=== PATIENT | male | born 1980 | race Caucasian/White ===

== ENCOUNTER 2018-11-11 20:34 | Emergency (ER) | payer OTHER ==
[~2018-11-11] VITALS: Ht 185.4 cm; Wt 108.9 kg
[~2018-11-11 20:34] MED LIST: CLINDAMYCIN HC300 MG PO; IBUPROFEN800 MG PO; NORCO 5-325 TA1 EACH PO; PERCOCET 5-3251 EACH PO; PERCOCET 7.5-31 EACH PO
[2018-11-11] MEDS ORDERED: ADVIL200 M1 PO (20:46)
== END 2018-11-11 22:36 | disposition home or self-care (01) ==
LOC: ED 20:34
DX: R10.9 Unspecified abdominal pain (principal); F17.200 Nicotine dependence, unspecified, uncomplicated; Z88.2 Allergy status to sulfonamides; Z88.1 Allergy status to other antibiotic agents
CPT/HCPCS: 51798; 74176; 80053; 81001; 85025; 99284-25; J7030